=== PATIENT | male | born 1970 | race Caucasian/White ===

== ENCOUNTER 2020-05-12 14:17 | Observation (INO) | payer MEDICARE, OTHER ==
[~2020-05-12] VITALS: Ht 185.4 cm; Wt 93.9 kg
[~2020-05-12 14:17] MED LIST: ALBUTEROL0.63 MG/3 INH; AZITHROMYCIN500 MG PO; CEFUROXIME500 MG PO; DALIRESP500 MCG PO; DOXYCYCLINE HY100 M2 PO; DULCOLAX5 MG PO; ECOTRIN81 MG PO; ENULOSE10 GM/15 M PO; HUMIBID LA TAB600 MG PO; HYDROCODON-ACE1 EAC4 PO; INCRUSE ELLI62.5 MCG INH; LEVAQUIN500 MG PO; LOPRESSOR 25 MG25 MG PO; MEDROL4 MG PO; NORCO 5-325 TA1 EACH PO; OMNICEF 300 MG300 MG PO; PREDNISONE 20 M20 MG PO; PREDNISONE20 MG PO; PROTONIX 40 MG40 M1 PO; SENNA8.6 MG PO; SYMBICORT 160-1 INHA INH; VENTOLIN HFA 66.7 GM INH; ZOCOR10 MG PO; ZOFRAN ODT 4 MG4 MG SL; ZOFRAN4 MG PO
[2020-05-12 14:49] LABS: HEMOGLOBIN 13.8 gm/dl (14.0-17.5); RED BLOOD COUNT 4.52 M/UL (4.20-5.50); WHITE BLOOD COUNT 10.9 K/UL (4.5-11.0)
[2020-05-12 15:10] LABS: BUN/CREATININE RATIO 20 (0-10)
[2020-05-12] MEDS ORDERED: HYDROCODONE-AC1 EAC1 PO (19:35)
[2020-05-12] MEDS ORDERED: LIPITOR40 MG PO (19:36)
[2020-05-12] MEDS ORDERED: METOPROLOL SUCC25 MG PO (19:37)
[2020-05-12] MEDS ORDERED: ZOLOFT50 MG PO (19:39)
[2020-05-12] MEDS ORDERED: ISOSORBIDE MONO60 MG PO (19:39)
[2020-05-12] MEDS ORDERED: CYCLOBENZAPRINE10 MG PO (19:41)
[2020-05-13 01:56] LABS: HEMOGLOBIN 13.6 gm/dl (14.0-17.5); RED BLOOD COUNT 4.51 M/UL (4.20-5.50); WHITE BLOOD COUNT 9.9 K/UL (4.5-11.0)
[2020-05-13 02:25] LABS: BUN/CREATININE RATIO 21 (0-10)
[2020-05-14 03:17] LABS: HEMOGLOBIN 12.8 gm/dl (14.0-17.5); RED BLOOD COUNT 4.26 M/UL (4.20-5.50)
[2020-05-14 03:24] LABS: WHITE BLOOD COUNT 18.7 K/UL (4.5-11.0)
[2020-05-14 03:42] LABS: BUN/CREATININE RATIO 32 (0-10)
[2020-05-14] MEDS ORDERED: DOXYCYCLINE HY100 MG PO (10:11)
[2020-05-14] MEDS ORDERED: IPRAT-ALBUT 0.5-3 ML NEB (10:11)
[2020-05-14] MEDS ORDERED: PREDNISONE 5 MG5 MG PO (10:11)
== END 2020-05-14 12:10 | disposition home or self-care (01) ==
LOC: ER1 14:17 → CDU 16:24 → PROG CARE 16:24
PROVIDERS: Physician Assistant; ADMIT Internal Medicine
DX: J44.1 Chronic obstructive pulmonary disease with (acute) exacerbation (principal); J96.11 Chronic respiratory failure with hypoxia; J98.11 Atelectasis; I25.10 Atherosclerotic heart disease of native coronary artery without angina pectoris; I10 Essential (primary) hypertension; E78.5 Hyperlipidemia, unspecified; R11.0 Nausea; K59.00 Constipation, unspecified; Z95.5 Presence of coronary angioplasty implant and graft; Z99.11 Dependence on respirator [ventilator] status; Z87.891 Personal history of nicotine dependence; Z20.822 Contact with and (suspected) exposure to COVID-19; Z99.81 Dependence on supplemental oxygen
CPT/HCPCS: 0240U; 36415; 36600; 71045; 80048; 80053; 82550; 82553; 82803; 83874; 83880; 84484; 85025; 94640; 94660; 94664; 94760; 96365; 96368; 96375; 96376; 99285; G0378; J0456; J0696; J1650; J2930; J7030

== ENCOUNTER 2020-05-22 16:17 | Observation (INO) | payer MEDICARE, OTHER ==
[~2020-05-22] VITALS: Ht 185.4 cm; Wt 94.3 kg
[~2020-05-22 16:17] MED LIST changes: +CYCLOBENZAPRINE10 MG PO; +DOXYCYCLINE HY100 MG PO; +HYDROCODONE-AC1 EAC1 PO; +IPRAT-ALBUT 0.5-3 ML NEB; +ISOSORBIDE MONO60 MG PO; +LIPITOR40 MG PO; +METOPROLOL SUCC25 MG PO; +PREDNISONE 5 MG5 MG PO; +ZOLOFT50 MG PO
[2020-05-22 17:06] LABS: HEMOGLOBIN 14.4 gm/dl (14.0-17.5); RED BLOOD COUNT 4.65 M/UL (4.20-5.50); WHITE BLOOD COUNT 13.8 K/UL (4.5-11.0)
[2020-05-22 17:32] LABS: BUN/CREATININE RATIO 34 (0-10)
[2020-05-22] MEDS ORDERED: PREDNISONE10 MG PO (19:56)
[2020-05-22] MEDS ORDERED: VENTOLIN HFA 66.7 GM INH (19:58)
--- NOTE | 2020-05-22 23:30 | NUR ---
PT RETURNED TO FLOOR FROM CT.
[2020-05-23 03:16] LABS: HEMOGLOBIN 13.5 gm/dl (14.0-17.5); RED BLOOD COUNT 4.45 M/UL (4.20-5.50); WHITE BLOOD COUNT 12.6 K/UL (4.5-11.0)
[2020-05-23 03:28] LABS: BUN/CREATININE RATIO 32 (0-10)
[2020-05-26] MEDS ORDERED: MEDROL DOSEPAK 24 MG PO (14:54)
[2020-05-26] MEDS ORDERED: LEVOFLOXACIN750 MG PO (14:54)
== END 2020-05-26 18:42 | disposition home or self-care (01) ==
LOC: ER1 16:17 → CDU 19:18 → MED SURG 4 19:18
PROVIDERS: Internal Medicine; ADMIT Internal Medicine
DX: R10.9 Unspecified abdominal pain (principal); J44.9 Chronic obstructive pulmonary disease, unspecified; I25.10 Atherosclerotic heart disease of native coronary artery without angina pectoris; I10 Essential (primary) hypertension; E78.5 Hyperlipidemia, unspecified; Z99.81 Dependence on supplemental oxygen; Z82.49 Family history of ischemic heart disease and other diseases of the circulatory system; Z83.6 Family history of other diseases of the respiratory system; Z98.61 Coronary angioplasty status; Z20.822 Contact with and (suspected) exposure to COVID-19
CPT/HCPCS: 36415; 71045; 71275; 76705; 80048; 80053; 81001; 82550; 82553; 84484; 85025; 85027; 85610; 85730; 87040; 93005; 94640; 94760; 96365; 96374; 96375; 96376; 99285; G0378; J0456; J0692; J0696; J1650; J2270; J2405; J2543; J2930; J7030; Q9967; U0002

== ENCOUNTER 2020-07-28 13:02 | Emergency (ER) | payer MEDICARE, OTHER ==
[~2020-07-28 13:02] MED LIST changes: +LEVOFLOXACIN750 MG PO; +MEDROL DOSEPAK 24 MG PO; +PREDNISONE10 MG PO
[2020-07-28 14:07] LABS: HEMOGLOBIN 14.3 gm/dl (14.0-17.5); RED BLOOD COUNT 4.69 M/UL (4.20-5.50); WHITE BLOOD COUNT 9.4 K/UL (4.5-11.0)
[2020-07-28 14:30] LABS: BUN/CREATININE RATIO 17 (0-10)
[2020-07-28] MEDS ORDERED: MEDROL4 MG PO (15:02)
== END 2020-07-28 15:15 | disposition home or self-care (01) ==
LOC: ER1 13:02
PROVIDERS: Physician Assistant
DX: J44.9 Chronic obstructive pulmonary disease, unspecified (principal); I10 Essential (primary) hypertension; E78.5 Hyperlipidemia, unspecified; Z87.891 Personal history of nicotine dependence
CPT/HCPCS: 36600; 71045; 80053; 82550; 82553; 82803; 83874; 84484; 85025; 93005; 94664; 94760; 96374; 99285; J2930

== ENCOUNTER 2020-08-25 20:46 | Emergency (ER) | payer MEDICARE, OTHER ==
[2020-08-25 21:11] LABS: HEMOGLOBIN 13.7 gm/dl (14.0-17.5); RED BLOOD COUNT 4.43 M/UL (4.20-5.50); WHITE BLOOD COUNT 12.1 K/UL (4.5-11.0)
[2020-08-25 21:30] LABS: BUN/CREATININE RATIO 25 (0-10)
[2020-08-26] MEDS ORDERED: ZITHROMAX250 MG PO (01:38)
[2020-08-26] MEDS ORDERED: PREDNISONE 50 M50 MG PO (01:38)
== END 2020-08-26 01:57 | disposition home or self-care (01) ==
LOC: ER1 20:46
PROVIDERS: Family Medicine
DX: J44.9 Chronic obstructive pulmonary disease, unspecified (principal); I25.2 Old myocardial infarction
CPT/HCPCS: 71045; 80053; 82550; 82553; 83605; 83874; 84484; 85025; 93005; 94640; 94664; 96374; 99285; J2930

== ENCOUNTER 2020-08-26 19:43 | Observation (INO) | payer MEDICARE, OTHER ==
[~2020-08-26] VITALS: Ht 185.4 cm; Wt 96.4 kg
[~2020-08-26 19:43] MED LIST changes: +PREDNISONE 50 M50 MG PO; +ZITHROMAX250 MG PO
[2020-08-26 20:57] LABS: HEMOGLOBIN 13.9 gm/dl (14.0-17.5); RED BLOOD COUNT 4.47 M/UL (4.20-5.50)
[2020-08-26 20:58] LABS: WHITE BLOOD COUNT 15.8 K/UL (4.5-11.0)
[2020-08-26 21:11] LABS: BUN/CREATININE RATIO 34 (0-10)
== END 2020-08-27 15:33 | disposition home or self-care (01) ==
LOC: ER1 19:43 → CDU 23:30 → MED SURG 4 23:30
PROVIDERS: Physician Assistant; ADMIT Internal Medicine Infectious Disease
DX: J44.1 Chronic obstructive pulmonary disease with (acute) exacerbation (principal); J96.11 Chronic respiratory failure with hypoxia; I25.10 Atherosclerotic heart disease of native coronary artery without angina pectoris; I10 Essential (primary) hypertension; E78.5 Hyperlipidemia, unspecified; Z95.5 Presence of coronary angioplasty implant and graft; Z99.81 Dependence on supplemental oxygen; Z87.891 Personal history of nicotine dependence; Z79.891 Long term (current) use of opiate analgesic; Z79.82 Long term (current) use of aspirin; Z79.899 Other long term (current) drug therapy; Z20.822 Contact with and (suspected) exposure to COVID-19
CPT/HCPCS: 36600; 71045; 80053; 82550; 82553; 82803; 83690; 83874; 84484; 85025; 93005; 94640; 94664; 94760; 96374; 99284; G0378; J2920; Q9967; U0002

== ENCOUNTER 2021-01-02 01:11 | Emergency (ER) | payer MEDICARE, OTHER ==
[~2021-01-02] VITALS: Ht 185.4 cm; Wt 97.1 kg
[2021-01-02 01:40] LABS: HEMOGLOBIN 13.2 gm/dl (14.0-17.5); RED BLOOD COUNT 4.3 M/UL (4.20-5.50); WHITE BLOOD COUNT 9.1 K/UL (4.5-11.0)
[2021-01-02 02:06] LABS: BUN/CREATININE RATIO 20 (0-10)
[2021-01-02] MEDS ORDERED: VIBRAMYCIN100 MG PO (10:10)
[2021-01-02] MEDS ORDERED: DECADRON6 MG PO (10:10)
[2021-01-02] MEDS ORDERED: SPIRIVA RESPIMAT4 GM INH (15:35)
[2021-01-02] MEDS ORDERED: PREDNISONE 10 M10 MG PO (15:36)
== END 2021-01-02 12:07 | disposition home or self-care (01) ==
LOC: ER1 01:11
PROVIDERS: Emergency Medicine
DX: U07.1 COVID-19 (principal); J44.1 Chronic obstructive pulmonary disease with (acute) exacerbation; Z87.891 Personal history of nicotine dependence; Z23 Encounter for immunization
CPT/HCPCS: 36600; 71045; 80053; 81001; 82550; 82553; 82803; 83605; 83735; 83874; 83880; 84100; 84484; 85025; 87040; 87086; 93005; 99285; J1100; M0243; Q9967; U0002

== ENCOUNTER 2021-01-02 12:41 | Observation (INO) | payer MEDICARE, OTHER ==
[~2021-01-02] VITALS: Ht 185.4 cm; Wt 103.4 kg
[~2021-01-02 12:41] MED LIST changes: +DECADRON6 MG PO; +VIBRAMYCIN100 MG PO
[2021-01-02 13:41] LABS: HEMOGLOBIN 13.7 gm/dl (14.0-17.5); RED BLOOD COUNT 4.44 M/UL (4.20-5.50); WHITE BLOOD COUNT 7.4 K/UL (4.5-11.0)
[2021-01-02 13:58] LABS: BUN/CREATININE RATIO 18 (0-10)
[2021-01-02] MEDS ORDERED: SPIRIVA RESPIMAT4 GM INH (15:35)
[2021-01-02] MEDS ORDERED: PREDNISONE 10 M10 MG PO (15:36)
[2021-01-03 08:21] LABS: HEMOGLOBIN 12.6 gm/dl (14.0-17.5); RED BLOOD COUNT 4.27 M/UL (4.20-5.50)
[2021-01-03 08:23] LABS: WHITE BLOOD COUNT 10.4 K/UL (4.5-11.0)
[2021-01-03 08:25] LABS: BUN/CREATININE RATIO 22 (0-10)
[2021-01-05] MEDS ORDERED: CEFUROXIME500 MG PO (08:29)
[2021-01-05] MEDS ORDERED: MEDROL4 MG PO (08:29)
[2021-01-05] MEDS ORDERED: PROAIR HFA8.5 GM INH (08:29)
[2021-01-05] MEDS ORDERED: VITAMIN C 500500 MG PO (08:29)
[2021-01-05] MEDS ORDERED: IPRAT-ALBUT 0.5-3 ML NEB (08:29)
== END 2021-01-05 13:01 | disposition home or self-care (01) ==
LOC: ER1 12:41 → CDU 15:01 → MED SURG 4 15:01
PROVIDERS: Emergency Medicine; ADMIT Internal Medicine
DX: J44.1 Chronic obstructive pulmonary disease with (acute) exacerbation (principal); U07.1 COVID-19; J96.11 Chronic respiratory failure with hypoxia; I25.10 Atherosclerotic heart disease of native coronary artery without angina pectoris; I10 Essential (primary) hypertension; E78.5 Hyperlipidemia, unspecified; Z95.5 Presence of coronary angioplasty implant and graft; Z99.81 Dependence on supplemental oxygen; Z87.891 Personal history of nicotine dependence; Z79.82 Long term (current) use of aspirin; Z79.899 Other long term (current) drug therapy
CPT/HCPCS: 36415; 71045; 80048; 80053; 82550; 82553; 83735; 83874; 84484; 85025; 93005; 94640; 94664; 94760; 99285; G0378; J0696; J1650; J2920

== ENCOUNTER 2021-01-14 08:17 | Observation (INO) | payer MEDICARE, OTHER ==
[~2021-01-14] VITALS: Ht 185.4 cm; Wt 104.3 kg
[~2021-01-14 08:17] MED LIST changes: -HYDROCODONE-AC1 EAC1 PO; +PREDNISONE 10 M10 MG PO; +PROAIR HFA8.5 GM INH; +SPIRIVA RESPIMAT4 GM INH; +VITAMIN C 500500 MG PO; -ZOLOFT50 MG PO
[2021-01-14 08:52] LABS: HEMOGLOBIN 14.1 gm/dl (14.0-17.5); RED BLOOD COUNT 4.58 M/UL (4.20-5.50); WHITE BLOOD COUNT 21.4 K/UL (4.5-11.0)
[2021-01-14 09:14] LABS: BUN/CREATININE RATIO 38 (0-10)
[2021-01-14] MEDS ORDERED: PREDNISONE10 MG PO (11:24)
[2021-01-14] MEDS ORDERED: ALBUTEROL2.5 MG/3 M NEB (11:25)
[2021-01-14] MEDS ORDERED: HYDROCODONE-AC1 EAC1 PO (19:35)
[2021-01-14] MEDS ORDERED: ZOLOFT100 MG PO (19:39)
[2021-01-15 01:57] LABS: HEMOGLOBIN 12.9 gm/dl (14.0-17.5); RED BLOOD COUNT 4.19 M/UL (4.20-5.50); WHITE BLOOD COUNT 15.7 K/UL (4.5-11.0)
[2021-01-15 03:21] LABS: BUN/CREATININE RATIO 41 (0-10)
[2021-01-15] MEDS ORDERED: RANEXA500 MG PO (12:32)
[2021-01-15] MEDS ORDERED: DOXYCYCLINE HY100 MG PO (12:36)
[2021-01-15] MEDS ORDERED: PREDNISONE 5 MG5 MG PO (12:36)
== END 2021-01-15 15:26 | disposition home or self-care (01) ==
LOC: ER1 08:17 → MED SURG 4 10:30 → CDU 10:30 → MED SURG 4 13:27
PROVIDERS: Physician Assistant; ADMIT Internal Medicine
DX: R07.89 Other chest pain (principal); J44.1 Chronic obstructive pulmonary disease with (acute) exacerbation; I25.10 Atherosclerotic heart disease of native coronary artery without angina pectoris; I10 Essential (primary) hypertension; E78.5 Hyperlipidemia, unspecified; I25.2 Old myocardial infarction; J96.11 Chronic respiratory failure with hypoxia; D72.829 Elevated white blood cell count, unspecified; E87.2 Acidosis; E87.3 Alkalosis; R82.81 Pyuria; R31.9 Hematuria, unspecified; Z95.5 Presence of coronary angioplasty implant and graft; Z86.16 Personal history of COVID-19; Z99.81 Dependence on supplemental oxygen; Z87.891 Personal history of nicotine dependence; Z79.82 Long term (current) use of aspirin; Z79.899 Other long term (current) drug therapy; Z20.822 Contact with and (suspected) exposure to COVID-19
CPT/HCPCS: ECHO; 36415; 36600; 71045; 80053; 81001; 82550; 82553; 82728; 82803; 83605; 83735; 83874; 84484; 85025; 85027; 85379; 86140; 87040; 93005; 93306; 94640; 94664; 94760; 96372; 96374; 96375; 96376; 99285; G0378; J1100; J1650; J2930; J7030; U0002

== ENCOUNTER → 2021-06-17 | Outpatient (CLI) | payer MEDICARE, OTHER ==
[~2021-06-17] MED LIST changes: +ALBUTEROL2.5 MG/3 M NEB; +HYDROCODONE-AC1 EAC1 PO; +PREDNISONE50 MG PO; +RANEXA500 MG PO; +ZOLOFT100 MG PO
== END ==
LOC: HEART 5 11:11
DX: R06.02 Shortness of breath (principal); R94.2 Abnormal results of pulmonary function studies
CPT/HCPCS: 94060; 94729

== ENCOUNTER 2021-06-19 20:58 | Emergency (ER) | payer MEDICARE, OTHER ==
[~2021-06-19 20:58] MED LIST changes: -PREDNISONE50 MG PO
[2021-06-19 22:12] LABS: HEMOGLOBIN 14.5 gm/dl (14.0-17.5); RED BLOOD COUNT 4.77 M/UL (4.20-5.50); WHITE BLOOD COUNT 12.9 K/UL (4.5-11.0)
[2021-06-19 22:35] LABS: BUN/CREATININE RATIO 27 (0-10)
[2021-06-20] MEDS ORDERED: PREDNISONE50 MG PO (02:00)
[2021-06-20] MEDS ORDERED: VIBRAMYCIN100 MG PO (02:00)
== END 2021-06-20 02:30 | disposition home or self-care (01) ==
LOC: ER1 20:58
PROVIDERS: Emergency Medicine
DX: J44.9 Chronic obstructive pulmonary disease, unspecified (principal); R10.9 Unspecified abdominal pain; I11.9 Hypertensive heart disease without heart failure; Z20.822 Contact with and (suspected) exposure to COVID-19
CPT/HCPCS: 0240U; 36600; 71045; 80053; 81001; 82550; 82553; 82803; 83605; 83690; 83735; 83880; 84484; 85025; 93005; 94664; 99285; Q9967

== ENCOUNTER 2021-07-07 12:42 | Emergency (ER) | payer MEDICARE, OTHER ==
[~2021-07-07 12:42] MED LIST changes: -LIPITOR40 MG PO; +PREDNISONE50 MG PO; -SPIRIVA RESPIMAT4 GM INH
[2021-07-07 15:00] LABS: HEMOGLOBIN 14.4 gm/dl (14.0-17.5); RED BLOOD COUNT 4.73 M/UL (4.20-5.50); WHITE BLOOD COUNT 11.4 K/UL (4.5-11.0)
[2021-07-07 15:57] LABS: BUN/CREATININE RATIO 11 (0-10)
[2021-07-07] MEDS ORDERED: TAMIFLU 75 MG C75 MG PO (17:00)
[2021-07-07] MEDS ORDERED: PREDNISONE 20 M20 MG PO (17:01)
== END 2021-07-07 18:11 | disposition home or self-care (01) ==
LOC: ER1 12:42
PROVIDERS: Physician Assistant
DX: J10.1 Influenza due to other identified influenza virus with other respiratory manifestations (principal); J96.11 Chronic respiratory failure with hypoxia; J43.9 Emphysema, unspecified; Z20.822 Contact with and (suspected) exposure to COVID-19; Z99.81 Dependence on supplemental oxygen; I25.2 Old myocardial infarction; Z87.891 Personal history of nicotine dependence
CPT/HCPCS: 0240U; 36600; 71045; 80053; 82550; 82553; 82803; 83605; 84484; 85025; 93005; 96374; 99285; J2930

== ENCOUNTER 2021-07-10 01:41 | Inpatient (IN) | payer MEDICARE, OTHER ==
[~2021-07-10] VITALS: Ht 185.4 cm; Wt 102.5 kg
[~2021-07-10 01:41] MED LIST changes: +TAMIFLU 75 MG C75 MG PO
[2021-07-10 02:09] LABS: HEMOGLOBIN 13.9 gm/dl (14.0-17.5); RED BLOOD COUNT 4.71 M/UL (4.20-5.50); WHITE BLOOD COUNT 12.6 K/UL (4.5-11.0)
[2021-07-10 02:25] LABS: BUN/CREATININE RATIO 23 (0-10)
[2021-07-10] MEDS ORDERED: IBU800 MG PO (09:31)
[2021-07-10] MEDS ORDERED: SPIRIVA RESPIMAT4 GM INH (15:35)
[2021-07-10] MEDS ORDERED: LIPITOR40 MG PO (19:36)
--- NOTE | 2021-07-11 02:40 | NUR ---
07/10/2021 @ APPROX 21:00 - RT alerts this RN that patient is struggling to breathe, asks if this RN can give ordered Solumedrol. Medication administered. RT treatments administered. Patient appears to be flushed, is tachypneic, abdominal breathing. 21:20 - MD Dasilva contacted, informed about patient condition, obtained order for bipap 14/6, ABG now and ABG two hours after placed on bipap. 21:35 - Patient already showing improvement after placed on bipap machine. No complaints at this time. Respirations even and unlabored. Call lindsey in reach.
[2021-07-11 06:29] LABS: HEMOGLOBIN 13.8 gm/dl (14.0-17.5); RED BLOOD COUNT 4.61 M/UL (4.20-5.50); WHITE BLOOD COUNT 13.2 K/UL (4.5-11.0)
[2021-07-11 06:47] LABS: BUN/CREATININE RATIO 33 (0-10)
[2021-07-12 06:25] LABS: HEMOGLOBIN 13.8 gm/dl (14.0-17.5); RED BLOOD COUNT 4.65 M/UL (4.20-5.50); WHITE BLOOD COUNT 11.7 K/UL (4.5-11.0)
[2021-07-12 06:44] LABS: BUN/CREATININE RATIO 34 (0-10)
[2021-07-13 06:02] LABS: HEMOGLOBIN 14.2 gm/dl (14.0-17.5); RED BLOOD COUNT 4.74 M/UL (4.20-5.50); WHITE BLOOD COUNT 13.8 K/UL (4.5-11.0)
[2021-07-13 06:23] LABS: BUN/CREATININE RATIO 34 (0-10)
[2021-07-14 06:00] LABS: HEMOGLOBIN 14.2 gm/dl (14.0-17.5); RED BLOOD COUNT 4.74 M/UL (4.20-5.50); WHITE BLOOD COUNT 12.7 K/UL (4.5-11.0)
[2021-07-14 06:18] LABS: BUN/CREATININE RATIO 31 (0-10)
[2021-07-15 07:03] LABS: HEMOGLOBIN 15.3 gm/dl (14.0-17.5); RED BLOOD COUNT 5.1 M/UL (4.20-5.50)
[2021-07-15 07:06] LABS: WHITE BLOOD COUNT 16.9 K/UL (4.5-11.0)
[2021-07-15 07:48] LABS: BUN/CREATININE RATIO 23 (0-10)
[2021-07-16 03:39] LABS: HEMOGLOBIN 14.7 gm/dl (14.0-17.5); RED BLOOD COUNT 4.92 M/UL (4.20-5.50); WHITE BLOOD COUNT 16.9 K/UL (4.5-11.0)
[2021-07-16 04:39] LABS: BUN/CREATININE RATIO 24 (0-10)
[2021-07-17 06:38] LABS: RED BLOOD COUNT 4.7 M/UL (4.20-5.50); WHITE BLOOD COUNT 13.8 K/UL (4.5-11.0)
[2021-07-17 07:18] LABS: BUN/CREATININE RATIO 23 (0-10)
[2021-07-17] MEDS ORDERED: LEVALBUTER0.63 MG/3 NEB (12:40)
[2021-07-17] MEDS ORDERED: ZOFRAN 4 MG TAB4 MG PO (12:40)
[2021-07-17] MEDS ORDERED: METOPROLOL SUCC25 MG PO (12:40)
[2021-07-17] MEDS ORDERED: PREDNISONE10 MG PO (12:40)
== END 2021-07-17 15:17 | disposition home or self-care (01) | DRG 193 ==
LOC: ER1 01:41 → CDU 06:05 → MED SURG 4 06:05 → CDU 06:05 → MED SURG 4 07:45
PROVIDERS: Family Medicine; Internal Medicine; ADMIT Internal Medicine
PROC: 5A09357 Assistance with Respiratory Ventilation, Less than 24 Consecutive Hours, Continuous Positive Airway Pressure (ICD-10-PCS; principal; 2021-07-10)
PROC: 5A09357 Assistance with Respiratory Ventilation, Less than 24 Consecutive Hours, Continuous Positive Airway Pressure (ICD-10-PCS; 2021-07-11)
PROC: 5A09357 Assistance with Respiratory Ventilation, Less than 24 Consecutive Hours, Continuous Positive Airway Pressure (ICD-10-PCS; 2021-07-12)
PROC: 5A09357 Assistance with Respiratory Ventilation, Less than 24 Consecutive Hours, Continuous Positive Airway Pressure (ICD-10-PCS; 2021-07-14)
PROC: 5A09357 Assistance with Respiratory Ventilation, Less than 24 Consecutive Hours, Continuous Positive Airway Pressure (ICD-10-PCS; 2021-07-17)
DX: J10.1 Influenza due to other identified influenza virus with other respiratory manifestations (principal); J96.21 Acute and chronic respiratory failure with hypoxia; J96.22 Acute and chronic respiratory failure with hypercapnia; J44.0 Chronic obstructive pulmonary disease with (acute) lower respiratory infection; J44.1 Chronic obstructive pulmonary disease with (acute) exacerbation; E87.2 Acidosis; Z20.822 Contact with and (suspected) exposure to COVID-19; E87.6 Hypokalemia; I25.10 Atherosclerotic heart disease of native coronary artery without angina pectoris; R10.11 Right upper quadrant pain; F41.9 Anxiety disorder, unspecified; F32.A Depression, unspecified; I10 Essential (primary) hypertension; E78.5 Hyperlipidemia, unspecified; Z99.81 Dependence on supplemental oxygen; Z82.49 Family history of ischemic heart disease and other diseases of the circulatory system; Z83.6 Family history of other diseases of the respiratory system; Z87.891 Personal history of nicotine dependence; Z95.5 Presence of coronary angioplasty implant and graft; Z79.899 Other long term (current) drug therapy
CPT/HCPCS: 0241U; 36415; 36600; 71045; 71046; 76705; 80048; 80053; 80076; 82550; 82553; 82803; 83605; 83735; 83880; 84484; 85025; 85027; 87040; 87070; 87205; 93005; 94640; 94660; 94760; 96374; 96376; 97161; 97165; 99285; G0378; J0696; J1650; J2405; J2920; J2930; Q9967

== ENCOUNTER → 2021-12-24 | Outpatient (CLI) | payer MEDICARE, OTHER ==
[~2021-12-24] MED LIST changes: +IBU800 MG PO; +LEVALBUTER0.63 MG/3 NEB; +LIPITOR40 MG PO; +SPIRIVA RESPIMAT4 GM INH; +ZOFRAN 4 MG TAB4 MG PO
[2021-12-24 09:38] LABS: HEMOGLOBIN 13.5 gm/dl (14.0-17.5); RED BLOOD COUNT 4.57 M/UL (4.20-5.50); WHITE BLOOD COUNT 9.3 K/UL (4.5-11.0)
[2021-12-25 07:12] LABS: A/G RATIO 1.9 (1.2-2.2); ALKALINE PHOSPHATASE, S 75 IU/L (44-121); ALT (SGPT) 17 IU/L (0-44); AST (SGOT) 15 IU/L (0-40); BILIRUBIN, TOTAL 0.5 mg/dL (0.0-1.2); BUN 13 mg/dL (6-24); BUN/CREATININE RATIO 17 (9-20); CALCIUM, SERUM 9.1 mg/dL (8.7-10.2); CARBON DIOXIDE, TOTAL 25 mmol/L (20-29); CHLORIDE, SERUM 104 mmol/L (96-106); CHOLESTEROL, TOTAL 129 mg/dL (100-199); CREATININE, SERUM 0.78 mg/dL (0.76-1.27); GLOBULIN, TOTAL 2.2 g/dL (1.5-4.5); GLUCOSE, SERUM 93 mg/dL (70-99); HDL CHOLESTEROL 36 mg/dL (>39); LDL CHOLESTEROL CALC 62 mg/dL (0-99); LDL/HDL RATIO 1.7 ratio (0.0-3.6); POTASSIUM, SERUM 4.2 mmol/L (3.5-5.2); PROTEIN, TOTAL, SERUM 6.4 g/dL (6.0-8.5); SODIUM, SERUM 144 mmol/L (134-144); T. CHOL/HDL RATIO 3.6 ratio (0.0-5.0); TRIGLYCERIDES 184 mg/dL (0-149)
== END ==
LOC: US 08:30
PROVIDERS: Nurse Practitioner Family
DX: Z12.5 Encounter for screening for malignant neoplasm of prostate (principal); R10.9 Unspecified abdominal pain; I25.10 Atherosclerotic heart disease of native coronary artery without angina pectoris; K59.00 Constipation, unspecified; K76.0 Fatty (change of) liver, not elsewhere classified
CPT/HCPCS: 36415; 76700; 80053; 80061; 81001; 84153; 84439; 84443; 85025